=== PATIENT | female | born 1945 | race Caucasian/White ===

== ENCOUNTER → 2017-07-31 | Outpatient (CLI) | payer MEDICARE ==
--- NOTE | 2017-07-31 16:20 | BD ---
EXAMINATION TYPE: MG DEXA axial skeleton. DATE OF EXAM: 07/31/2017 CLINICAL HISTORY: 72-year-old female unspecified osteoarthritis, status post menopausal screening Height: 63 Weight: 163 FRAX RISK QUESTIONS: Alcohol (3 or more units per day): no Family History (Parent hip fracture): no Glucocorticoids (More than 3mos): no (Ex: prednisone, prednisolone, methylprednisolone, dexamethasone, and hydrocortisone). History of Fracture in Adulthood: no Secondary Osteoporosis: 1. Type 1 Diabetes: no 2. Hyperthyroidism: no 3. Menopause before 45: no 4. Malnutrition: no 5. Chronic liver disease: no Rheumatoid Arthritis: no Current Tobacco Use: no RISK FACTORS HISTORY OF: Family History of Osteoporosis: no Active: yes Diet low in dairy products/other sources of calcium: no Postmenopausal woman: yes Take estrogen and/or progesterone medications: not now How long: about 5 years Lost more than 2 inches in height since high school: yes Frequent falls: no Poor Health: no Hyperparathyroidism: no Adrenal Insufficiency: no MEDICATIONS: Prednisone or other steroids: no Thyroid Medications: yes Which medication: Levothyroxine How Long: about 2 months Osteoporosis Medications: no Additional Medications: blood pressure meds, cholesterol meds, multivitamin Additional History: unspecified osteoarthritis, unspecified site EXAM MEASUREMENTS: Bone mineral densitometry was performed using the AbraResto System. Bone mineral density as measured about the Lumbar spine is: ----- L1-L4(G/cm2): 0.978 T Score Values are as follows: ----- L2: -2.4 ----- L3: -1.3 ----- L4: -1.9 ----- L1-L4: -1.8 Bone mineral density not previously done at this facility- done elsewhere about 2009 Bone mineral density about the R hip (g/cm2): 0.859 Bone mineral density about the L hip (g/cm2): 0.852 T Score values are as follows: -----R Neck: -1.3 -----L Neck: -1.3 -----R Total: -0.6 -----L Total: -0.5 Bone mineral density not previously done at this facility-done elsewhere about 2009 IMPRESSION: Osteopenia (T Score between -2.5 and -1 as noted by T score values in the lumbar spine and both hips) . There is slightly increased risk of fracture and the patient may be considered for treatment. Re-Scre en 2-5 years. NOTE: T-SCORE=SD OF THE YOUNG ADULT MEAN.
== END | disposition home or self-care (01) ==
LOC: RADBDWWP 09:13
PROVIDERS: ATTEND Family Medicine
DX: M85.852 Other specified disorders of bone density and structure, left thigh (principal); M85.851 Other specified disorders of bone density and structure, right thigh
CPT/HCPCS: 77080

== ENCOUNTER → 2019-04-22 | Outpatient (CLI) | payer MEDICARE ==
--- NOTE | 2019-04-22 15:32 | XR ---
EXAMINATION TYPE: XR Hip Complete LT DATE OF EXAM: 04/22/2019 COMPARISON: 04/04/2011 HISTORY: 73-year-old female with left hip pain TECHNIQUE: 2 views FINDINGS: Mild marginal spurring at the left hip. Osteitis pubis. Subarticular sclerosis at the left SI joint. Some bony spurring at the greater trochanter. No acute fracture, subluxation, or dislocation. IMPRESSION: 1. Mild left hip OA. 2. Prominent spurring at the greater trochanter suggests insertional gluteal tendinopathy. 3. Osteitis pubis.
== END | disposition home or self-care (01) ==
LOC: RADXRMAIN 11:05
PROVIDERS: ATTEND Family Medicine
DX: M16.12 Unilateral primary osteoarthritis, left hip (principal); M25.752 Osteophyte, left hip; M85.30 Osteitis condensans, unspecified site
CPT/HCPCS: 73502

== ENCOUNTER → 2020-03-11 | Outpatient (CLI) | payer MEDICARE | END | disposition home or self-care (01) | LOC: LABWHC1 12:47 | PROVIDERS: ATTEND Surgery | DX: Z11.59 Encounter for screening for other viral diseases (principal) ==

== ENCOUNTER 2020-03-13 07:09 | Day surgery (SDC) | payer MEDICARE ==
[2020-03-12 10:48] VITALS: BMI 28.5
[~2020-03-13 07:09] MED LIST: LACTATED RINGERS 1,000 ML IV SCH
[2020-03-13 07:54] VITALS: TEMP 97.5
[2020-03-13] MEDS ORDERED: ONDANSETRON 4 MG/2 ML VIAL IVP ONE (07:58)
[2020-03-13] MEDS ORDERED: DEXAMETHASONE SOD PHOSPHATE 10 MG/ML 1 ML VIAL IV ONE (07:58)
--- NOTE | 2020-03-13 08:10 | P.GSHP ---
History of Present Illness H&P Date: 03/13/20 Chief Complaint: Colon polyp 74-year-old female known to our service. Underwent colonoscopy May 2016. Patient was found to have a flat sessile polyp removed in a piecemeal fashion in the ascending colon. Biopsies demonstrated serrated adenoma. Here today for follow-up exam. Past Medical History Past Medical History: GERD/Reflux, Hyperlipidemia, Hypertension, Musculoskeletal Disorder, Thyroid Disorder Additional Past Medical History / Comment(s): hx. colon polyps, herniated discs History of Any Multi-Drug Resistant Organisms: None Reported Past Surgical History: Appendectomy, Hysterectomy, Orthopedic Surgery Additional Past Surgical History / Comment(s): colonoscopies, malena foot surg., arthroscopies malena knees Past Anesthesia/Blood Transfusion Reactions: Postoperative Nausea & Vomiting (PONV) Smoking Status: Never smoker Medications and Allergies Home Medications Medication Instructions Recorded Confirmed Type Ascorbic Acid [Vitamin C] 500 mg PO DAILY 03/12/20 03/13/20 History Aspirin 81 mg PO DAILY 03/12/20 03/13/20 History Cholecalciferol [Vitamin D3 (25 1,000 unit PO DAILY 03/12/20 03/13/20 History Mcg = 1000 Iu)] Glucosam/Chond/Hyalu/Cf Borate 1 each PO DAILY 03/12/20 03/13/20 History [Move Free Joint Health Tablet] Levothyroxine Sodium [Synthroid] 50 mcg PO DAILY 03/12/20 03/13/20 History Losartan [Cozaar] 25 mg PO DAILY 03/12/20 03/13/20 History Omeprazole [PriLOSEC] 20 mg PO AC-BID PRN 03/12/20 03/13/20 History Sertraline [Zoloft] 50 mg PO DAILY 03/12/20 03/13/20 History Simvastatin [Zocor] 40 mg PO HS 03/12/20 03/13/20 History Vitamin E 400 unit PO DAILY 03/12/20 03/13/20 History Sulfamethox-Tmp 400-80Mg [Bactrim 1 tab PO Q12HR 03/13/20 03/13/20 History SS 400-80 mg] Allergies Allergy/AdvReac Type Severity Reaction Status Date / Time aspirin AdvReac causes Verified 03/13/20 07:46 stomach problems codeine AdvReac headache Verified 03/13/20 07:46 Surgical - Exam Vital Signs Temp Pulse Resp BP Pulse Ox 97.5 F L 57 L 16 171/81 97 03/13/20 07:50 03/13/20 07:50 03/13/20 07:50 03/13/20 07:50 03/13/20 07:50 Physical exam: General: Well-developed, well-nourished HEENT: Normocephalic, sclerae nonicteric Abdomen: Nontender, nondistended Extremities: No edema Neuro: Alert and oriented Assessment and Plan (1) Polyp of ascending colon Narrative/Plan: Will proceed with colonoscopy at this time. Current Visit: Yes Status: Acute Code(s): K63.5 - POLYP OF COLON SNOMED Code(s): 901472607
[2020-03-13] MEDS ORDERED: PROPOFOL 10 MG/ML 20 ML VIAL IV ONE (08:13)
[2020-03-13] MEDS ORDERED: fentaNYL (PF) 50 MCG/ML 2 ML AMP ONE (08:13)
[2020-03-13] MEDS ORDERED: MIDAZOLAM 2 MG/2 ML VIAL ONE (08:13)
--- NOTE | 2020-03-13 08:36 | P.PCN ---
Date of Procedure: 03/13/20 Procedure(s) Performed: PREOPERATIVE DIAGNOSIS: History of polyps POSTOPERATIVE DIAGNOSIS: Normal exam PROCEDURE: Colonoscopy ANESTHESIA: MAC SURGEON: Russell Watts M.D. SPECIMENS: None known ENDOSCOPIC PROCEDURE: The patient was placed on the endoscopy table in the left decubitus position. The Olympus colonoscope was inserted into the anus and passed under direct visualization to the base of the cecum. The appendiceal orifice was visualized. From that point the scope was slowly withdrawn inspect ing all surfaces carefully. There were no neoplastic inflammatory or polypoid lesions throughout the cecum, ascending, transverse, descending, sigmoid and rectum. There was no visible diverticulosis noted. Digital rectal examination was normal. The patient was taken to the recovery room in stable condition per anesthesia guidelines. RECOMMENDATIONS: Increase fiber. Follow-up colonoscopy in 5 years.
[2020-03-13 09:18] VITALS: BP 122/74; PULSE 71; RESP 16
== END 2020-03-13 09:18 | disposition home or self-care (01) ==
LOC: ORWHC2ENDO 07:09
PROVIDERS: ATTEND Surgery
DX: Z12.11 Encounter for screening for malignant neoplasm of colon (principal); Z86.010 Personal history of colon polyps; I10 Essential (primary) hypertension; E78.5 Hyperlipidemia, unspecified; K21.9 Gastro-esophageal reflux disease without esophagitis; E07.9 Disorder of thyroid, unspecified; Z79.82 Long term (current) use of aspirin; Z79.890 Hormone replacement therapy; Z79.899 Other long term (current) drug therapy; Z90.49 Acquired absence of other specified parts of digestive tract; Z88.5 Allergy status to narcotic agent; Z88.6 Allergy status to analgesic agent; Z90.710 Acquired absence of both cervix and uterus; Z98.890 Other specified postprocedural states
CPT/HCPCS: J2250; J1100; J2405; J3010; J2704; G0105; 45378

== ENCOUNTER → 2020-11-25 | Outpatient (CLI) | payer MEDICARE ==
--- NOTE | 2020-11-25 20:55 | CT ---
EXAMINATION TYPE: CT abdomen pelvis wo con DATE OF EXAM: 11/25/2020 COMPARISON: CT chest 05/21/2014. HISTORY: RQ pain, diverticulitis CT DLP: 637.60 mGycm Automated exposure control for dose reduction was used. TECHNIQUE: Helical acquisition of images was performed from the lung bases through the pelvis. FINDINGS: LUNG BASES: Redemonstrated [id number] bibasilar opacities. Stable 5 mm right middle lobe nodul e dating back to 2013 CT. LIVER/GB: No significant abnormality is appreciated. PANCREAS: No significant abnormality is seen. SPLEEN: No significant abnormality is seen. ADRENALS: No significant abnormality is seen. KIDNEYS: No significant abnormality is seen. FREE AIR: No free air is visualized RETROPERITONEAL ADENOPATHY: None visualized REPRODUCTIVE ORGANS: No significant abnormality is seen URINARY BLADDER: No significant abnormality is seen. PELVIC ADENOPATHY: None visualized. OSSEOUS STRUCTURES: No acute abnormality is seen. Moderate lumbar spondylosis with grade 1 anterolis thesis at L4-5. Suggestion of T12 vertebral body hemangioma. BOWEL: No significant abnormality is seen. No acute appendicitis or diverticulitis. Moderate stool b urden. OTHER: None. IMPRESSION: NO DEFINITE ACUTE ABNORMALITY. REDEMONSTRATED [id number] BIBASILAR OPACITIES AND/OR SCARRING, STABLE. STABLE 5 MM RIGHT MIDDLE LOBE NODULE, FAVOR BENIGN ETIOLOGY. Moderate stool burden.
== END | disposition home or self-care (01) ==
LOC: RADCTMAIN 15:01
PROVIDERS: ATTEND Family Medicine
DX: K56.41 Fecal impaction (principal); K57.90 Diverticulosis of intestine, part unspecified, without perforation or abscess without bleeding; Z88.5 Allergy status to narcotic agent
CPT/HCPCS: 74176

== ENCOUNTER → 2020-12-09 | Outpatient (CLI) | payer MEDICARE ==
--- NOTE | 2020-12-09 10:56 | NM ---
EXAMINATION TYPE: NM hepatobiliary w EF DATE OF EXAM: 12/09/2020 COMPARISON: Correlation CT 11/25/2020 HISTORY: 75-year-old female K83.9, biliary dyskinesia TECHNIQUE: After the intravenous administration of 4.8 mCi Tc 99m Mebrofenin hepatobiliary scintigrap hy is performed. Immediate images post injection. FINDINGS: There is satisfactory initial accumulation of tracer by the liver. The gallbladder is visualized wit hin 6 minutes. The small bowel activity is noted within 44 minutes. At one hour 8 ounces of oral en sure plus is given to mimic CCK and gallbladder ejection fraction is calculated at 88 %, elevated abo ve the expected range (35-80%). IMPRESSION: 1. No scintigraphic evidence for acute/chronic cholecystitis or biliary dyskinesia. 2. However, gallbladder ejection fraction is elevated above 80%. This may be seen with gallbladder hy perkinesis.
== END | disposition home or self-care (01) ==
LOC: RADNMMAIN 06:57
PROVIDERS: ATTEND Family Medicine
DX: R93.2 Abnormal findings on diagnostic imaging of liver and biliary tract (principal); K83.9 Disease of biliary tract, unspecified; Z88.5 Allergy status to narcotic agent
CPT/HCPCS: 78226; A9537

== ENCOUNTER → 2022-05-26 | Outpatient (CLI) | payer MEDICARE ==
--- NOTE | 2022-05-26 14:33 | MR ---
EXAMINATION TYPE: MR knee RT wo con DATE OF EXAM: 05/26/2022 COMPARISON: No radiographic correlation available. HISTORY: 76-year-old female with right knee pain, eval for UKR vs TKR TECHNIQUE: Multiplanar, multisequence imaging of the right knee is performed without IV contrast. FINDINGS: There is thickening and increased signal along the intact fibers of the ACL. Findings could represent a low-grade sprain or mucoid degeneration. LCL is intact. Mild edema on either side of the intact MCL fibers Some thickening and inhomogeneous signal along the femoral attachment of the LCL proper. LCL complex otherwise intact. There is essentially full-thickness cartilage loss along much of the mid to peripheral aspect of the lateral compartment. The remaining cartilage shows mild to moderate thinning. There is marginal spurr ing and some reactive subchondral signal changes. Medial compartment shows moderate focal irregular cartilage loss along the mid central aspect of the medial femoral condyle measuring 1.3 cm AP and 9 mm wide. Additional scattered mild superficial carti armando irregularity is present with mild thinning along the mid weightbearing aspect. There is marginal spurring. The lateral meniscus is diffusely degenerative, torn, and extruded. Large tear of the ante rior horn. Extensive degenerative signal within the posterior horn and body of the medial meniscus. Signal conta cts the tibial articular surface at the junction of the posterior horn and body, coronal image 22 and sagittal images 9 and 10. There is mild thinning of articular cartilage along the medial patellar facet. There is some underlyi ng trochlear dysplasia with a very short superior aspect of the medial trochlear facet. There is increased signal along the insertional fibers of the quadriceps tendon without tear. Nonspec ific anterior soft tissue swelling. There is a small to moderate effusion within the deep infrapatell ar bursa and adjacent edema extending into the Hoffa's fat. Additional edema within the suprapatellar fat pad. There is a moderate joint effusion with mild chronic synovitis and a small Osborne's cyst. Scattered edematous change within the upper calf musculature. Generalized muscle atrophy. Normal popl iteal artery anatomy. No suspicious bone marrow replacement. IMPRESSION: 1. Either grade 1 sprain versus mucoid degeneration of the ACL. Additional grade 1 MCL sprain. Low-gr dina versus chronic sprain of the LCL proper at the femoral attachment. 2. Severe lateral compartment osteoarthrosis with essential complete loss of articular cartilage zafar g much of the mid to peripheral aspect of the lateral compartment. Diffusely degenerative, torn, and extruded lateral meniscus. 3. There is mild overall medial compartmental osteoarthrosis with mild diffuse thinning but a more fo ezequiel area of moderate irregular cartilage loss measuring 13 x 9 mm along the mid central aspect of the femoral condyle. 4. Degenerative signal throughout the body and posterior horn of the medial meniscus with suspected s mall oblique tear at the junction of the posterior horn and body. 5. Mild thinning medial patellar articular cartilage. Some underlying trochlear dysplasia with a very short superior aspect of the medial trochlear facet. 6. Mild to moderate insertional quadriceps tendinosis. 7. Moderate joint effusion with mild chronic synovitis. Small Osborne's cyst. Additional deep infrapate llar bursitis. Edema within the adjacent Hoffa's fat could reflect fat pad impingement. Similarly, ed michelle within the suprapatellar fat pad can be seen with fat pad impingement syndrome. 8. Edema within the upper calf musculature could be reactive due to altered biomechanics or could rep resent mild muscle strain.
== END | disposition home or self-care (01) ==
LOC: RADMRIMAIN 10:50
PROVIDERS: ATTEND Orthopaedic Surgery Sports Medicine
DX: M17.11 Unilateral primary osteoarthritis, right knee (principal)

== ENCOUNTER → 2022-06-28 | Outpatient (CLI) | payer MEDICARE ==
[2022-06-28 18:17] LABS: INR 0.9 (<1.2); Partial Thromboplastin Time 24.1 sec (22.0-30.0); Prothrombin Time 10.1 sec (9.0-12.0)
[2022-06-29 01:17] LABS: Anion Gap 11.5 mmol/L (10.00-18.00); Carbon Dioxide 25.2 mmol/L (20.0-27.5); Potassium 4.1 mmol/L (3.5-5.5)
[2022-06-29 01:22] LABS: Basophils # (A) 0.05 X 10*3/uL (0.00-0.10); Basophils % (A) 0.8 %; Eosinophils # (A) 0.23 X 10*3/uL (0.04-0.35); Eosinophils % (A) 3.6 %; HCT 40.3 % (37.2-46.3); HGB 13.5 g/dL (12.0-15.0); Immature Grans, Automated 0.2 %; Lymphocytes # (A) 1.88 X 10*3/uL (0.90-5.00); Lymphocytes % (A) 29.1 %; MCH 31.6 pg (27.0-32.0); MCHC 33.5 g/dL (32.0-37.0); MCV 94.4 fL (80.0-97.0); Mean Platelet Volume 10.6 fL (9.5-12.2); Monocytes # (A) 0.66 X 10*3/uL (0.20-1.00); Monocytes % (A) 10.2 %; NRBC Per 100 WBC 0 /100 WBCS (0.0-0.0); Neutrophils # (A) 3.64 X 10*3/uL (1.80-7.70); Neutrophils % (A) 56.1 %; Platelet Count 224 X 10*3/uL (140-440); RBC 4.27 X 10*6/uL (4.10-5.20); WBC 6.47 X 10*3/uL (4.50-10.00)
== END | disposition home or self-care (01) ==
LOC: LABWHC1 16:18
PROVIDERS: ATTEND Family Medicine
DX: Z01.812 Encounter for preprocedural laboratory examination (principal)
CPT/HCPCS: 36415; 80051; 85025; 85610; 85730

== ENCOUNTER → 2022-07-21 | Outpatient (CLI) | payer MEDICARE | END | disposition home or self-care (01) | LOC: LABWHC1 10:48 | PROVIDERS: ATTEND Orthopaedic Surgery Sports Medicine | DX: M17.11 Unilateral primary osteoarthritis, right knee (principal) | CPT/HCPCS: 87070 ==

== ENCOUNTER → 2024-03-19 | Outpatient (CLI) | payer MEDICARE ==
--- NOTE | 2024-03-20 18:48 | MM ---
Reason for Exam: Screening (asymptomatic). Last mammogram was performed 1 year(s) and 6 month(s) ago. Patient History: Menarche at age 14. First Full-Term at age 25. Postmenopausal. Risk Values: Bárbara 5 year model risk: 1.6%. NCI Lifetime model risk: 3.0%. Prior Study Comparison: 08/26/2021 Bilateral Screening Mammogram, [facility]. 10/14/2022 Bilateral Screening Mammogram, [facility]. Tissue Density: There are scattered areas of fibroglandular density. Findings: Analyzed By CAD. Chronic nodularity on the right. Unchanged grouped calcifications central left breast. There is no suspicious group of microcalcifications or new suspicious mass in either breast. Overall Assessment: Benign, BI-RAD 2 Management: Screening Mammogram of both breasts in 1 year. . Patient should continue monthly self-breast exams. A clinical breast exam by your physician is recommended on an annual basis. This exam should not preclude additional follow-up of suspicious palpable abnormalities. Note on Bárbara scores and lifetime risk: 1. A Bárbara score greater than 3% is considered moderate risk. If this is the case, consider specialist referral to assess eligibility for a risk reducing agent. 2. If overall lifetime risk for the development of breast cancer is 20% or higher, the patient may qualify for future screening with alternating mammogram and breast MRI. Electronically signed and approved by: Paulina De La Vega M.D. Radiologist
== END | disposition home or self-care (01) ==
LOC: RADMAMWWP 13:31
PROVIDERS: ATTEND Family Medicine
DX: Z12.31 Encounter for screening mammogram for malignant neoplasm of breast (principal); Z78.0 Asymptomatic menopausal state
CPT/HCPCS: 77063; 77067

== ENCOUNTER 2025-01-22 10:46 | Day surgery (SDC) | payer MEDICARE ==
[2025-01-21 14:22] VITALS: BMI 27.1
[2025-01-22] MEDS: IV FLUID CONTINUATION 1,000 ML IV ONE ×2 (11:34→12:33)
[2025-01-22 11:35] VITALS: RESP 16; TEMP 98.3
[2025-01-22] MEDS: LACTATED RINGERS 1,000 ML IV SCH (11:42)
[2025-01-22] MEDS ORDERED: LIDOCAINE 1% INJ 10MG/ML (20 ML MDV) ONE (12:35)
[2025-01-22] MEDS ORDERED: PROPOFOL 10 MG/ML 20 ML VIAL IV ONE (12:35)
--- NOTE | 2025-01-22 12:42 | P.PCN ---
Date of Procedure: 01/22/25 Procedure(s) Performed: BRIEF HISTORY: Patient is a 79-year-old, pleasant, white female scheduled for an upper endoscopy as a part evaluation of heartburn for the last several years duration. Recently symptoms have been progressively getting worse and hence will start her on omeprazole 20 mg twice daily with good relief.. PROCEDURE PERFORMED: Esophagogastroduodenoscopy with biopsy. PREOPERATIVE DIAGNOSIS: Longstanding history of GERD. IV sedation per anesthesia. PROCEDURE: After informed consent was obtained, the patient was brought into the endoscopy unit. IV sedation was administered by Anesthesia under continuous monitoring. Initially the Olympus GIF-140 video endoscope was inserted into the mouth. Esophagus intubated without any difficulty. It was gradually advanced into the stomach and duodenum and carefully examined. The bulb and the second part of the duodenum appeared normal. The scope at this time was withdrawn to the stomach, adequately insufflated with air, and upon careful examination, mucosa of the antrum, had patchy areas of erythema consistent with gastritis. Biopsies were done from this area. Mucosa of the body, cardia and the fundus appeared normal. The scope was then withdrawn into the esophagus. Small hiatal hernia noted. The GE junction was located at 39 cm from the incisors. The esophagus appeared normal. There were no erosions or ulcerations seen and the patient tolerated the procedure well. IMPRESSION: 1. Mild antral gastritis. 2. Small hiatal hernia. RECOMMENDATIONS: The findings of this examination were discussed with the patient as well as her family. She was advised to follow-up with the biopsy results. Continue with omeprazole daily and follow antireflux measures..
[2025-01-22 13:03] VITALS: BP 121/58; PULSE 78
== END 2025-01-22 13:36 | disposition home or self-care (01) ==
LOC: ORWHC2ENDO 10:46
PROVIDERS: ATTEND Internal Medicine Gastroenterology
DX: K29.50 Unspecified chronic gastritis without bleeding (principal); K44.9 Diaphragmatic hernia without obstruction or gangrene
CPT/HCPCS: 43239; J2003; J2704; 88305

== ENCOUNTER → 2025-04-22 | Outpatient (CLI) | payer MEDICARE ==
--- NOTE | 2025-04-22 14:42 | MM ---
Reason for Exam: Screening (asymptomatic). Last mammogram was performed 1 year(s) and 1 month(s) ago. Patient History: Menarche at age 14. First Full-Term at age 25. Postmenopausal. Risk Values: Bárbara 5 year model risk: 1.5%. NCI Lifetime model risk: 2.8%. Prior Study Comparison: 08/26/2021 Bilateral Screening Mammogram, [facility]. 10/14/2022 Bilateral Screening Mammogram, [facility]. 03/19/2024 Bilateral MG 3D screening mammo w/cad, [facility]. Tissue Density: There are scattered areas of fibroglandular density. Findings: Analyzed By CAD. There are a few small benign-appearing round calcifications bilaterally redemonstrated. There is stable group of benign-appearing round calcifications in the left breast centrally. There is no suspicious group of microcalcifications or new suspicious mass in either breast. Overall Assessment: Benign, BI-RAD 2 Management: Screening Mammogram of both breasts in 1 year. . Patient should continue monthly self-breast exams. A clinical breast exam by your physician is recommended on an annual basis. This exam should not preclude additional follow-up of suspicious palpable abnormalities. Note on Bárbara scores and lifetime risk: 1. A Bárbara score greater than 3% is considered moderate risk. If this is the case, consider specialist referral to assess eligibility for a risk reducing agent. 2. If overall lifetime risk for the development of breast cancer is 20% or higher, the patient may qualify for future screening with alternating mammogram and breast MRI. [facility], , 04/22/2025 2:38 PM. Electronically signed and approved by: Yaakov Acuña M.D.
== END | disposition home or self-care (01) ==
LOC: RADMAMWWP 14:03
PROVIDERS: ATTEND Family Medicine
DX: Z12.31 Encounter for screening mammogram for malignant neoplasm of breast (principal); R92.323 Mammographic fibroglandular density, bilateral breasts; R92.1 Mammographic calcification found on diagnostic imaging of breast; Z78.0 Asymptomatic menopausal state
CPT/HCPCS: 77063; 77067